=== PATIENT | male | born 1985 | race Caucasian/White ===

== ENCOUNTER → 2024-09-20 15:17 | Outpatient (REF) | payer BC, SELFPAY | LOC: HWRAD 15:17 | PROVIDERS: ATTENDING PHYSICIAN Nurse Practitioner Family; FAMILY PHYSICIAN Family Medicine | DX: N50.819 Testicular pain, unspecified (principal) | CPT/HCPCS: 76870; 93976 ==

== ENCOUNTER → 2024-09-29 12:14 | Outpatient (REF) | payer BC, SELFPAY | LOC: HWRAD 12:14 | PROVIDERS: ATTENDING PHYSICIAN Nurse Practitioner Family; FAMILY PHYSICIAN Family Medicine | DX: N50.819 Testicular pain, unspecified (principal); M54.50 Low back pain, unspecified; M54.51 Vertebrogenic low back pain | CPT/HCPCS: 72110; 76882 ==